=== PATIENT | male | born 1945 | race Caucasian/White ===

== ENCOUNTER 2018-11-16 11:33 | Emergency (ER) | payer MEDICARE, OTHER ==
[~2018-11-16] VITALS: Ht 170.2 cm; Wt 76.7 kg
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
--- NOTE | 2018-11-16 12:00 | NUR ---
DR GUAMAN AT BEDSIDE FOR EVAL
--- NOTE | 2018-11-16 12:30 | NUR ---
HOSPICE DIRECTOR AT BEDSIDE.
--- NOTE | 2018-11-16 12:54 | NUR ---
Patient discharged to home in stable condition. Written and verbal after care instructions given. Patient verbalizes understanding of instruction.
[2018-11-16 12:56] VITALS: BP 158/99
== END 2018-11-16 12:57 | disposition home or self-care (01) ==
LOC: ER 11:34
DX: R07.89 Other chest pain (principal); I10 Essential (primary) hypertension; V49.69XA Unspecified car occupant injured in collision with other motor vehicles in traffic accident, initial encounter; Y93.89 Activity, other specified; Y92.413 State road as the place of occurrence of the external cause; Y99.8 Other external cause status
CPT/HCPCS: 71045; 99283; L0172